=== PATIENT | female | born 1960 ===

== ENCOUNTER 2016-11-01 08:33 | Emergency (ER) | payer MEDICAID ==
[2016-11-01 09:02] VITALS: BMI 40.1
--- NOTE | 2016-11-01 09:35 | ED PDOC ---
Arrival/HPI - General Chief Complaint: Lower Extremity Problem/Injury Time Seen by Provider: 11/01/16 09:18 Historian: Patient - History of Present Illness Narrative History of Present Illness (Text): 11/01/16 09:33 56 y/o female, pmh including htn/hyperlipidamia, nkda, c/o rt. knee pain and swelling x 3 weeks with no fall or trauma. Aching pain, aggravated by movement and running, no numbness or tingling, no headache or night sweat, no dizziness, no calf pain, no skin discoloration, no other medical or psychological complaints. Past Medical History - Provider Review Nursing Documentation Reviewed: Yes - Infectious Disease Hx of Infectious Diseases: None - Cardiac Hx Hypotension: Yes Hx Pacemaker: No - Pulmonary Hx Asthma: Yes - Neurological Hx Paralysis: No - Hematological/Oncological Hx Blood Transfusions: No Hx Blood Transfusion Reaction: No - Musculoskeletal/Rheumatological Hx Musculoskeletal Disorders: No - Psychiatric Hx Emotional Abuse: No Hx Physical Abuse: No Hx Substance Use: No - Surgical History Other/Comment: D&C - Anesthesia Hx Anesthesia: Yes Hx Anesthesia Reactions: No Hx Malignant Hyperthermia: No - Suicidal Assessment Feels Threatened In Home Enviroment: No Family/Social History - Physician Review Nursing Documentation Reviewed: Yes Family/Social History: Unknown Family HX Smoking Status: Never Smoked Hx Alcohol Use: Yes Hx Substance Use: No Allergies/Home Meds Allergies/Adverse Reactions: Allergies No Known Allergies Allergy (Verified 11/01/16 08:58) Home Medications: Home Meds Medication Instructions Recorded Confirmed Albuterol 0.5% [Albuterol 0.5% 3 ml IH PRN PRN 02/17/16 11/01/16 Inhal Cindy (2.5 mg/0.5 ml) UD] Albuterol HFA [Ventolin HFA 90 2 puff IH [id number] PRN 02/17/16 11/01/16 mcg/actuation (8 g)] Atorvastatin [Lipitor] 20 mg PO DAILY 11/01/16 11/01/16 Valsartan [Diovan] 320 mg PO DAILY 11/01/16 11/01/16 amLODIPine [Norvasc] 5 mg PO DAILY 11/01/16 11/01/16 Review of Systems - Review of Systems Constitutional: absent: Fatigue, Fevers Eyes: absent: Vision Changes ENT: absent: Hearing Changes Respiratory: absent: Cough, Sputum Cardiovascular: absent: Chest Pain Gastrointestinal: absent: Abdominal Pain, Diarrhea, Nausea, Vomiting Musculoskeletal: Arthralgias, Joint Swelling. absent: Back Pain, Neck Pain, Myalgias Skin: absent: Rash, Pruritis, Skin Lesions Neurological: absent: Headache, Dizziness, Gait Changes Physical Exam Vital Signs Reviewed: Yes Vital Signs Temp Pulse Resp BP Pulse Ox 11/01/16 11:37 98.0 F 78 16 148/78 100 11/01/16 08:54 98.1 F 85 18 128/77 97 Temperature: Afebrile Blood Pressure: Normal Pulse: Regular Respiratory Rate: Normal Appearance: Positive for: Well-Appearing, Non-Toxic, Comfortable Pain Distress: Moderate Mental Status: Positive for: Alert and Oriented X 3 - Systems Exam Head: Present: Atraumatic, Normocephalic Pupils: Present: PERRL Extroacular Muscles: Present: EOMI Conjunctiva: Present: Normal Mouth: Present: Moist Mucous Membranes Neck: Present: Normal Range of Motion Respiratory/Chest: Present: Clear to Auscultation, Good Air Exchange. No: Respiratory Distress, Accessory Muscle Use Cardiovascular: Present: Regular Rate and Rhythm, Normal S1, S2. No: Murmurs Abdomen: Present: Normal Bowel Sounds. No: Tenderness, Distention, Peritoneal Signs Back: Present: Normal Inspection Upper Extremity: Present: Normal Inspection. No: Cyanosis, Edema Lower Extremity: Present: Normal Inspection, Other (Rt. lower extremity: +ttp and mild swelling to the MCL region on the rt. knee, no skin edema, FROM without limitation, sensation intact motor 5/5, +DPPT pulses, capillary refill< 2 seconds, neurovascular intact. ). No: Edema Neurological: Present: GCS=15, Speech Normal, Motor Func Grossly Intact, Gait Normal, Memory Normal Skin: Present: Warm, Dry, Normal Color. No: Rashes Psychiatric: Present: Alert, Oriented x 3, Normal Insight, Normal Concentration Medical Decision Making ED Course and Treatment: 11/01/16 09:35 -rt. knee xray -RLE Venuous Doppler -Indomethacin -observe and reassess 11/01/16 10:59 -Lt. knee xray: no fracture or dislocation -LLE venuous doppler: as per preliminary report, no acute DVT -Pain decreased, delores wrap applied with neurovascular intact. -Discharge home with naproxen, delores wrap, crutches, non-weight bearing, follow up with your own pmd and orthopedic within 2 days, you will need MRI of the knee if the pain persist with no improvement, return to the ER for any new or worsening signs or symptoms. - RAD Interpretation Radiology Orders: 11/01/16 09:31 KNEE W PATELLA RIGHT 3 VIEW [RAD] Stat DUPLEX LOWER EXTRM VEIN RIGHT [US] Stat Lt. 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 Disposition/Present on Arrival - Present on Arrival Any Indicators Present on Arrival: No History of DVT/PE: No History of Uncontrolled Diabetes: No Urinary Catheter: No History of Decub. Ulcer: No History Surgical Site Infection Following: None - Disposition Have Diagnosis and Disposition been Completed?: Yes Diagnosis: Arthritis, Knee pain Disposition: HOME/ ROUTINE Disposition Time: 11:01 Patient Plan: Discharge Condition: IMPROVED Additional Instructions: Discharge home with naproxen, delores wrap, crutches, non-weight bearing, follow up with your own pmd and orthopedic within 2 days, you will need MRI of the knee if the pain persist with no improvement, return to the ER for any new or worsening signs or symptoms. Prescriptions: Naproxen 500 mg PO BID PRN #20 tab PRN Reason: Other Referrals: Wood Higuera MD [Primary Care Provider] - Follow up with primary Tiffanie Moffett MD [Staff Provider] - Follow up with primary Forms: WORK NOTE
--- NOTE | 2016-11-01 11:08 | RAD ---
PROCEDURE: Right Knee Radiographs. HISTORY: rt. knee pain x 3 weeks COMPARISON: None. FINDINGS: BONES: No acute fracture. 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 No articular erosions. JOINT EFFUSION: None. OTHER FINDINGS: None. 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
[2016-11-01 11:38] VITALS: BP 148/78; PULSE 78; RESP 16; TEMP 98; O2SAT 100
--- NOTE | 2016-11-01 12:10 | US ---
PROCEDURE: Right lower extremity venous US HISTORY: Leg pain and swelling. Evaluate for DVT. PHYSICIAN(S): Raman Ibanez M.D. TECHNIQUE: Duplex sonography and color-flow Doppler with graded compression were used to evaluate the deep venous system of the right lower extremity. FINDINGS: The visualized deep venous system of the right lower extremity is sonographically normal and compressible. Normal waveforms and augmentation are seen. There is no sonographic evidence for deep venous thrombosis in the visualized segments of the right lower extremity. IMPRESSION: 1. No sonographic evidence for deep venous thrombosis in the visualized segments of the right lower extremity.
== END 2016-11-01 11:50 | disposition home or self-care (01) ==
LOC: ED 08:33
DX: M25.561 Pain in right knee (principal); M17.9 Osteoarthritis of knee, unspecified; I10 Essential (primary) hypertension; E78.5 Hyperlipidemia, unspecified

== ENCOUNTER 2018-07-04 11:24 | Outpatient (CLI) | payer MEDICAID | END 2018-07-04 11:25 | disposition home or self-care (01) | LOC: RAD 11:25 | DX: Z12.31 Encounter for screening mammogram for malignant neoplasm of breast (principal) ==